=== PATIENT | male | born 2000 | race Caucasian/White ===

== ENCOUNTER 2020-01-07 18:51 | Emergency (ER) | payer BC, SELFPAY ==
[2020-01-07 18:51] VITALS: BP 128/87; PULSE 103; RESP 15; TEMP 36.9; O2SAT 99; BMI 19.8
[2020-01-07] MEDS: Acetaminophen 500 MG Tablet 1000 MG PO (19:34)
--- NOTE | 2020-01-07 19:50 | ED.DCSUM_ITS ---
History of Present Illness Chief Complaint: Dental Informant: Patient Onset: Yesterday Context: Gradual Onset Timing: Continuous Relieved by: NSAIDs Associated Symptoms: Jaw Swelling Narrative: Patient is a 19-year-old male presenting with 1 day of right lower jaw pain and swelling. He notes his pain is worse with chewing. This morning he noticed that he was having more swelling and went to an urgent care. He was evaluated and put on Augmentin. Instructed to take ibuprofen and follow-up with a dentist. Patient states he did not feel that he was evaluated thoroughly enough so he came to the emergency room. He is continued to have pain. He did take ibuprofen about 45 minutes prior to arrival. Patient notes 4 months ago he had his wisdom teeth removed and did have complications of dry socket and bone spurs on the right lower jaw. Patient sees [facility] dentist for his dental care. He denies any fever or chills. He denies any difficulty swallowing. Denies any other complaints at this time. Prior similar symptoms: No Past Medical History - Allergies and Home Meds Allergies/Adverse Reactions: Allergies No Known Allergies Allergy (Verified 05/06/17 14:07) Primary Care Physician: Care Physician,No Primary [Primary Care Provider] - Past Medical History: - - Marfanoid characteristics, no actual Marfan syndrome Surgical History: no surgical history Smoking Status: Never smoker Review of Systems General: Denies: Chills, Fever, Malaise, Sweats Eyes: Denies: Visual changes - bilaterally, Diplopia ENT: Reports: - - right lower dental pain/ jaw swelling . Denies: Bilateral ear pain, Rhinorrhea, Sore throat Cardiovascular: Denies: Chest pain, Palpitations Respiratory: Denies: Dyspnea, Cough, Dyspnea on exertion Gastrointestinal: Denies: Abdominal pain, Nausea, Vomiting, Diarrhea Skin: Denies: Rash, Wounds Neurological: Denies: Headache, Weakness, Numbness Physical Exam Vital Signs/Narrative: Vital Signs Temp Pulse Resp BP Pulse Ox 01/07/20 18:51 98.4 F 103 H 15 128/87 H 99 Inital Vital Signs reviewed: Yes General: Well nourished, Well developed Head: Normocephalic, Atraumatic ENT: Moist mucous membranes, No rhinorrhea, TM's clear Mouth/Throat: Normal inspection lips/gums, Normal oral mucosa, Focal gum swelling - Posterior and lateral to the right back mandibular molar, Tenderness on tooth percussion - Right lower posterior mandible, - - Sublingual mucosa is soft, tissue swelling but no obvious abscess or area of fluctuance amenable to drainage. Negative for: Dental trauma, Dental abscess, Dentral fracture, Focal dental decay, Trismus, Widespread dental decay Neck: Supple, No lymphadenopathy, Nontender, No JVD Cardiovascular: Regular rate, Regular rhythm, No murmurs Respiratory: No distress, CTA bilaterally, Chest nontender Abdomen: Soft, Nontender Skin: Normal color, No rash Neurological: Alert, Oriented x3, Cranial nerves II-XII grossly intact, Normal Strength, Normal Sensation Psychological: Normal affect Diagnostic/Tx/Re-eval - Medical Decision Making Regional and Local Dental Anesthesia: Marcaine, Right Inferior Alveolar Nerve Block Patient is evaluated for dental pain and swelling. He appears nontoxic no acute distress. He has no airway compromise. I do not suspect Ludwigs angina. He does not have an obvious abscess that is amenable to drainage at this time. Patient is given a dental block for pain control as well as Tylenol. He is already on Augmentin and is encouraged to keep it. He is heavily encouraged to call his dentist tomorrow morning for follow-up. Patient is counseled on signs and symptoms requiring return to the emergency room. Patient verbalizes agreement and understand this plan. Patient discharged home in stable and improved condition. ED Disposition - Plan for ED Patient: Disposition: Home or Assisted Living Diagnosis: Facial swelling, Dentalgia Instructions: Dental Abscess Prescriptions: Ibuprofen [Motrin] 600 mg PO Q6H PRN PRN #20 tab PRN Reason: Pain/Inflammation Prescription Printed Referrals: Care Physician,No Primary [Primary Care Provider] - Additional Instructions: Follow-up with your dentist. At this time I think you have an early dental abscess but is too soon to drain. Return the emergency room if you have significantly worsening swelling, unable to open your mouth or difficulty swallowing. Is very important that you follow-up with your dentist soon as possible. Call in the morning.
[2020-01-07] MEDS: Bupivacaine 0.5%/Epi 1.8 ML Syringe INFILT (20:03)
== END 2020-01-07 20:05 | disposition home or self-care (01) ==
PROVIDERS: Emergency Provider Emergency Medicine
DX: K08.89 Other specified disorders of teeth and supporting structures (principal); R22.0 Localized swelling, mass and lump, head
CPT/HCPCS: 64999; 99283

== ENCOUNTER 2023-04-09 16:09 | Emergency (ER) | payer MEDICAID, SELFPAY ==
[2023-04-09 16:10] VITALS: BP 117/64; PULSE 101; RESP 18; TEMP 36.8; O2SAT 99; BMI 23.9
--- NOTE | 2023-04-09 16:12 | EDS_ITS ---
HPI History of Present Illness Chief Complaint: Syncope [facility] Medical History (Updated 04/09/23 @ 19:[address] Heriberto Cotton, DO) Marfan syndrome POTS (postural orthostatic tachycardia syndrome) Home Medications ibuprofen 600 mg tablet 600 mg PO Q6H PRN PRN Pain/Inflammation #20 tabs 01/07/20 [Rx Last Taken Unknown] Allergy/AdvReac Type Severity Reaction Status Date / Time No Known Allergies Allergy Verified 05/06/17 14:07 Social History Smoking Status: Never smoker EXAM Physical Exam Const Vital Signs: 04/09/23 16:10 04/09/23 16:13 04/09/23 16:34 Temperature 98.3 F Temperature Source Temporal Pulse Rate 101 H Respiratory Rate 18 Respiratory Pattern Normal Blood Pressure 117/64 Blood Pressure Mean 81 Pulse Ox 99 Oxygen Delivery Method Room Air Room Air MDM MDM MDM Narrative Medical decision making narrative: HISTORY OF PRESENT ILLNESS: 22-year-old male here for near syncope. Patient states he was at work and began feeling warm, flushed, dizzy and nearly passed out. Denies any falls or head trauma. States he is able to lower himself to the ground under his own power. Patient denies any prolonged confusion afterwards. States has a history of POTS and Marfan syndrome. States he is followed with a [facility] maintenance shop technician for which she sees once a year to get reevaluation and repeat testing. He states he has not had chest pain. He does note some shortness of breath the last 2 days but denies any shortness of breath now. The patient denies recent surgery in the last 4 weeks or immobilization in the last 3 days, denies previous diagnosis of DVT or PE, hemoptysis, unilateral leg swelling or mal ignancy with treatment the last 6 months. No estrogen use noted.. He denies any bleeding diathesis such as hemoptysis, hematemesis, hematuria, melena, hematochezia. He denies any volume loss such as vomiting or diarrhea. Denies any recent illnesses, cough, fever. Denies any sick contacts. REVIEW OF SYSTEMS: Pertinent positives: lightheadedness near syncope Pertinent negatives: Focal weakness, chest pain, shortness of breath PHYSICAL EXAM: Nursing triage notes reviewed, Vital signs reviewed Constitutional: please see mdm HENT: MMM Eyes: Pupils equal round and reactive to light, Extraocular muscles intact Neck: No stridor, no JVD, full neck ROM Lungs: Clear to auscultation, No wheezing or rales. No increased work of breathing, no conversational dyspnea, no accessory muscle use, no nasal flaring. No respiratory distress noted Heart: Regular rate and rhythm, No murmurs, No rubs and No gallops, 2+ distal pulses (radial, femoral, posterior tibial) in all extremities Abdomen: Soft, there is no tenderness, rigidity, rebound or guarding, no obvious peritoneal signs, no palpable pulsatile abdominal masses, no auscultated abdominal bruit : No CVAT Extremities: No edema Neuro: Alert and oriented x3, neuro exam at baseline, cranial nerves II through XII are intact. No pain with extraocular muscle movement. There is negative test of skew. Normal speech. 5 of 5 strength in upper and lower extremities in flexion extension. Intact sensation to light touch in upper and lower extremity dermatomes. No truncal or extremity ataxia. No dysdiadochokinesia. Normal gait. 2+ reflexes. No meningeal signs. Negative Babinski. NIH of 0 Skin: No rash or lesions noted MEDICAL DECISION MAKING: Chief Complaint: syncope External records reviewed: No recent cardiac catheterizations, stress test or echocardiograms noted in the chart. No recent ED visits noted in the chart MDM Narrative: Patient was initially hemodynamically stable, afebrile, nontoxic-appearing satu rating well on room air no acute distress. I considered the following differential diagnosis: Arrhythmia, myocardial ischemia, anemia, electrolyte abnormality, pulmonary infection, aortic dissection, PE I considered pulmonary embolism as a potential diagnosis However the patient has a low risk Wells score and as such have a low suspicion for PE. He had no stigmata of VTE on exam he is not complaining of chest pain or shortness of breath. While the patient does have a history of Marfan syndrome he had no chest pain, pulse deficits or vital sign abnormalities I would suggest aortic dissection IV was established, patient was placed on the court monitor. I performed a broad lab and imaging work-up to further elucidate the etiology of the patient's complaints. Patient's initial EKG showed normal sinus rhythm, normal axis, normal intervals, no STEMI or ischemic changes. There is no signs of WPW, ARVD or Brugada syndrome. I treated the patient with 1 L of normal saline for fluid resuscitation. Labs were remarkable for no signs of systemic inflammation or anemia. There is no evidence of electrolyte abnormalities, significant anemia. Troponin was negative x2 (0% 90-day mortality with 2 negative high-sensitivity troponins). No clear life-limiting etiology could be ascertained. Patient's etiology is likely secondary to POTS syndrome and dehydration encouraged to push more p.o. fluids. Patient agreed with plan agreed to follow-up with his maintenance shop technician and primary care physician at the next available appointment. Factors affecting care: Marfan syndrome, POTS Social determinants of health: Never smoker History obtained from others: Coworkers, EMS Shared decision making: I will have a discussion with the patient and or visitors regarding risk/benefits of further testing or admission. They will be made aware of of the risk/benefits inherent in this decision they will be given the opportunity to voice understanding. Consults: None Lab Data Attestation: I reviewed the patient's lab results. Lab results narrative: EKG with normal sinus rhythm, normal axis, normal intervals, no ST or T wave changes to suggest ischemia. No evidence of WPW, Brugada, ARVD. CBC without leukocytosis, severe anemia, no thrombocytopenia. BMP without significant electrolyte abnormalities, no anion gap to suggest endorgan hypoperfusion, patient does have a mild acute kidney injury with a creatinine 1.55. There is no prior for comparison. Repeat BMP shows creatinine is downtrending patient is vomiting having diarrhea he is appropriate for outpatient management with his PCP Troponin is negative, no evidence of myocardial ischemia, delta troponin also negative Labs: Laboratory Results - last 24 hr 04/09/23 04/09/23 04/09/23 16:42 16:42 18:50 WBC 6.4 RBC 5.12 Hgb 15.4 Hct 45.6 MCV 89.1 MCH 30.1 MCHC 33.8 RDW Std Deviation 37.6 RDW Coeff of Giovany 11.7 Plt Count 352 MPV 9.3 Immature Gran % (Auto) 0.300 Neut % (Auto) 60.1 Lymph % (Auto) 29.7 [place] % (Auto) 7.2 Eos % (Auto) 2.2 Baso % (Auto) 0.5 Absolute Neuts (auto) 3.8 Absolute Lymphs (auto) 1.89 Nucleated RBC % 0 Sodium 141 142 Potassium 3.6 3.5 Chloride 105 111 H Carbon Dioxide 27.0 24.0 Anion Gap 9 7 BUN 19 H 20 H Creatinine 1.55 H 1.38 H Estim Creat Clear Calc 89.35 100.35 Est GFR (MDRD) Af Amer 72 82 Est GFR (MDRD) Non-Af 60 68 BUN/Creatinine Ratio 12.3 14.5 Glucose 92 92 Calcium 9.6 8.3 L Troponin I High Sens 3 04/09/23 18:50 WBC RBC Hgb Hct MCV MCH MCHC RDW Std Deviation RDW Coeff of Giovany Plt Count MPV Immature Gran % (Auto) Neut % (Auto) Lymph % (Auto) [place] % (Auto) Eos % (Auto) Baso % (Auto) Absolute Neuts (auto) Absolute Lymphs (auto) Nucleated RBC % Sodium Potassium Chloride Carbon Dioxide Anion Gap BUN Creatinine Estim Creat Clear Calc Est GFR (MDRD) Af Amer Est GFR (MDRD) Non-Af BUN/Creatinine Ratio Glucose Calcium Troponin I High Sens 4 Radiography Diagnostic Testing: Clinical Impression(s) from Imaging Studies Chest X-Ray 04/09/23 16:42 IMPRESSION: Normal x-ray examination of the chest. Electronically Signed: Hamlet Wiley MD at 17:06 EDT , Discharge Plan Triage Chief Complaint: Syncope ED Provider: Heriberto Cotton Dx/Rx/DC Orders Clinical Impression: Near syncope, POTS (postural orthostatic tachycardia syndrome) Instructions: ED Fainting, Vagal Reaction Prescriptions: No Action ibuprofen 600 MG tablet 600 mg PO Q6H PRN PRN (Reason: Pain/Inflammation) Qty: 20 0RF Stand Alone Forms: ED Work / School Excuse Primary Care Provider: Aide Garces [employer] Referrals: Care Physician,No Primary [Non-Staff] - Activity Restrictions/Additional Instructions: Thank you for trusting us with your care today! Please take Tylenol (2 pills, 650 mg), ibuprofen (2 pills, 400 mg) every 6 hours as needed for pain and fever control. Please increase your fluid intake. I recommend Pedialyte or body armor as they have a superior electrolyte sugar profile. Please return to the emergency department if your symptoms change or worsen. Please follow with your primary care physician for further outpatient evaluation and management. Disposition Disposition: Home, Self Care
--- NOTE | 2023-04-09 16:13 | EKG12_ITS ---
Test Reason : NEAR SYNCOPE Blood Pressure : / mmHG Vent. Rate : 090 BPM Atrial Rate : 090 BPM P-R Int : 142 ms QRS Dur : 092 ms QT Int : 334 ms P-R-T Axes : 072 076 045 degrees QTc Int : 408 ms Normal sinus rhythm Normal ECG Confirmed by CHRISTOFER SCHROEDER, HILARIA ([id number]), supervising editor trailer ANANTH TREVIÑO ([id number]) on 04/12/2023 11:34:49 AM Referred By: Confirmed By:HILARIA BEAULIEU MD
--- NOTE | 2023-04-09 16:42 | RAD_ITS ---
STUDY: X-RAY CHEST REASON FOR EXAM: Male, 22 years old. chest pain TECHNIQUE: Single AP portable view of the chest. COMPARISON: None. FINDINGS: The lungs are clear and expanded. There is no demonstrated pleural abnormality. Normal size heart. Normal mediastinum and juan. Normal visualized pulmonary arteries. Normal visualized aortic arch and descending thoracic aorta. Normal visualized thoracic spine. Normal visualized ribs, clavicles, and shoulders. There is no demonstrated abnormality of the visualized soft tissue structures of the upper abdomen. RAD/Chest 1 View (Portable) IMPRESSION: Normal x-ray examination of the chest. Electronically Signed: Hamlet Wiley MD at 17:06 EDT ,
[2023-04-09 16:48] LABS: Absolute Lymphocyte Count 1.89 X10^3/uL (0.83-4.51); Absolute Neutrophil Count 3.8 X10^3/uL (2.0-7.7); Basophil# 0.03 X10^3/uL; Basophil% 0.5 % (0-1); Eosinophil# 0.14 X10^3/uL; Eosinophils% 2.2 % (0-5); Hematocrit 45.6 % (40-54); Hemoglobin 15.4 g/dL (13.0-16.5); Lymphocyte # 1.89 X10^3/ul (0.83-4.51); Lymphocyte % 29.7 % (19-41); Mean Corp Hgb Conc 33.8 g/dL (32-36); Mean Corpuscular Hgb 30.1 pg (27.0-32.0); Mean Corpuscular Volume 89.1 fL (80-94); Mean Platelet Vol. 9.3 fl (6.2-12.0); Monocyte# 0.46 X10^3/uL; Monocyte% 7.2 % (0-10); NRBC Flagged by Analyzer 0 % (0-5); Neutrophil # 3.82 X10^3/uL (2.7-7.7); Neutrophil % 60.1 % (47-70); Platelet Count 352 K/mm3 (150-450); RBC Distribution Width CV 11.7 % (11.6-14.6); RBC Distribution Width SD 37.6 fl (35.1-43.9); Red Blood Count 5.12 M/mm3 (4.6-6.2); White Blood Count 6.4 K/mm3 (4.4-11.0)
[2023-04-09] MEDS: 0.9% Normal Saline 1,000 ML 1000 ML IV (16:53)
[2023-04-09 17:13] LABS: Anion Gap 9 (5-15); BUN 19 mg/dL (7-18); BUN/Creat Ratio 12.3 RATIO (10-20); Calcium,Total 9.6 mg/dL (8.5-10.1); Chloride 105 mmol/L (98-107); Creatinine, Serum 1.55 mg/dL (0.70-1.30); EST Glomerular Filtration Rate 60 mL/min (>60); Est Glom Filt Rate - Afr Amer 72 mL/min (>60); Estimated Creatinine Clearance 89.35 ml/min; Glucose 92 mg/dL (74-106); Potassium 3.6 mmol/L (3.5-5.1); Sodium Level 141 mmol/L (136-145); Troponin-I HS (w/2H Reflex) 3 pg/mL (3.0-78.0)
[2023-04-09] MEDS: 0.9% Normal Saline 1,000 ML 999 ML IV (17:52)
[2023-04-09 18:46] LABS: Reflex Troponin-HS? (from REC) Y
[2023-04-09 19:22] LABS: Anion Gap 7 (5-15); BUN 20 mg/dL (7-18); BUN/Creat Ratio 14.5 RATIO (10-20); Calcium,Total 8.3 mg/dL (8.5-10.1); Chloride 111 mmol/L (98-107); Creatinine, Serum 1.38 mg/dL (0.70-1.30); EST Glomerular Filtration Rate 68 mL/min (>60); Est Glom Filt Rate - Afr Amer 82 mL/min (>60); Estimated Creatinine Clearance 100.35 ml/min; Glucose 92 mg/dL (74-106); Potassium 3.5 mmol/L (3.5-5.1); Sodium Level 142 mmol/L (136-145)
[2023-04-09 19:28] LABS: Troponin-I HS 4 pg/mL (3.0-78.0)
[2023-04-09 19:45] VITALS: RESP 18
== END 2023-04-09 19:46 | disposition home or self-care (01) ==
PROVIDERS: Emergency Provider Emergency Medicine; PCP Internal Medicine; Visit Provider Emergency Medicine
DX: R55 Syncope and collapse (principal); G90.A Postural orthostatic tachycardia syndrome [POTS]
CPT/HCPCS: 71045; 80048; 84484; 85025; 93005; 96360; 96361; 99285; J7030; A4216

== ENCOUNTER 2024-12-26 16:31 | Emergency (ER) | payer BC, SELFPAY ==
[2024-12-26 16:33] VITALS: BP 146/101; PULSE 90; RESP 18; TEMP 37.2; O2SAT 98; BMI 24.5
--- NOTE | 2024-12-26 16:40 | US_ITS ---
PROCEDURE: TESTICULAR WITH ARTERIAL FLOW REASON FOR EXAM: Pain and lump for 2 days TECHNIQUE: Grayscale and color flow imaging of the scrotal contents with Doppler waveform spectral analysis. COMPARISON: No relevant prior FINDINGS: RIGHT testicle: 4.4 x 3.7 x 2.5 cm. Homogeneous echotexture. No intratesticular mass. Right epididymis: 0.9 x 1.5 x 0.7 cm. Hydrocele: Small. Varicocele: Present. LEFT testicle: 4.7 x 2.9 x 2.5 Homogeneous echotexture. No intratesticular mass. Left epididymis: 1.3 x 2.1 x 0.6 cm. Hydrocele: Small. Neck is Varicocele: Not present. Other findings: No hydrocele or large varicocele. US/Testicular with Arterial Flow IMPRESSION: No testicular masses. Bilateral small hydroceles. Small right varicocele. No evidence of torsion. Reading Location: NIA
[2024-12-26 17:48] LABS: Mucous, Urine 0 SEEN /hpf (<or=2+); Squamous Epithelial Cells - UA 0 SEEN /hpf (0-5)
--- NOTE | 2024-12-26 18:15 | EX.ED.GUMALE ---
HPI History of Present Illness Chief Complaint: Male Pain/Injury Informant: patient and spouse/S.O. Narrative Narrative: Presents concerning increasing lump left scrotum over last 2 days. States 2 days ago he did lift TV with his dad, no injuries no pain during the event. States he noted mild discomfort that progressed. States yesterday was small pea size and enlarged since then. No urinary symptoms. He is here with his fianc?e. Denies penile discharge. 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 Prior similar symptoms: No PFSH PFSH Medical History Marfan syndrome POTS (postural orthostatic tachycardia syndrome) Home Medications ?Medication ?Instructions ?Recorded ?Last Taken ?Type ibuprofen 600 mg tablet 600 mg PO Q6H PRN PRN 01/07/20 Unknown Rx Pain/Inflammation #20 tabs Allergy/AdvReac Type Severity Reaction Status Date / Time No Known Allergies Allergy Verified 12/26/24 16:33 Social History Smoking Status: Never smoker ROS ROS ED Constitutional Constitutional ED: Denies chills, fever(s) or sweats ENT ENT ED: Denies sore throat Cardiovascular Cardiovascular: Denies chest pain, leg edema, palpitations or racing heartbeat Respiratory/Chest Respiratory/Chest: Denies cough, dyspnea or dyspnea on exertion Gastrointestinal Gastrointestinal: Denies abdominal pain, diarrhea, nausea or vomiting Genitourinary Genitourinary ED: Reports other Details: Left scrotal pain. No penile discharge. ; Denies dysuria, hematuria or urinary frequency Musculoskeletal Musculoskeletal: Denies back pain, extremity pain or neck pain Integumentary Denies rash or wounds Neurologic Neurologic: Denies headache(s), paresthesias or weakness EXAM Physical Exam Const Vital Signs: 12/26/24 16:33 12/26/24 18:32 12/26/24 20:00 Temperature 98.9 F Temperature Source Oral Pulse Rate 90 84 71 Respiratory Rate 18 16 Blood Pressure 146/101 H 117/69 Blood Pressure Mean 116 85 Pulse Ox 98 100 Oxygen Delivery Method Room Air 12/26/24 22:00 12/26/24 22:21 Temperature 98 F Temperature Source Pulse Rate 83 83 Respiratory Rate 16 Blood Pressure 109/72 109/72 Blood Pressure Mean 84 84 Pulse Ox 96 96 Oxygen Delivery Method Positive well nourished and well developed General Appearance ED: well developed and NAD HEENT Reports moist mucous membranes normocephalic and atraumatic Eyes General Eye ED: Yes normal appearance of both eyes Neck full ROM Chest Wall Chest: Negative for tenderness Resp normal respiratory effort and normal air movement Effort and Inspection: symmetric chest movement; Negative for respiratory distress Cardio regular rate, regular rhythm and no murmurs Peripheral Pulses: pulses 2+ throughout GI normal to inspection, nondistended, normoactive bowel sounds and non-tender Palpation: Negative for guarding or rebound tenderness present Narrative: No hernia seen or palpated. There is left epididymal tenderness, there was bogginess palpated inferior aspect the left scrotum. No scrotal mass palpated. Extremity normal to inspection General Extremety ED: Negative for edema or tenderness General Extremity: Negative for edema Neuro oriented x3 and no sensory deficits noted Sensorium / Orientation: awake and alert Skin no rashes or lesions noted and no wounds MDM MDM MDM Narrative Medical decision making narrative: Interventions / MDM: Differential diagnosis: Epididymitis, varicocele, hydrocele Diagnosis considered but do not suspect: No clinical hernia, no clinical torsion My EKG interpretation: N/A Imaging independently reviewed and interpreted by myself: Scrotal ultrasound: Small hydroceles bilaterally, right variceal. External documents reviewed: N/A Test considered but not ordered:N/A ED course: Patient declines any medications. Ultrasound ordered. Urine sent for UA and STD screening. Urine for hematuria, GC chlamydia returned negative. Delay in ultrasound reads, resolved small bilateral hydroceles, right varicocele. Discussed clinical epididymitis, scrotal support NSAIDs. Discussed no intervention typically with hydroceles and varicoceles. Is reassured. He is given follow-up with urology. All questions were answered. Re-evaluation: stable Disposition discussed with patient/family/significant other: Case discussed with consulting clinician: N/A This note was generated with [employer] dictation software. It may contain incorrect words, spelling, and punctuation that were not noted in checking the note before signing. Lab Data Attestation: I reviewed the patient's lab results. Labs: Laboratory Results - last 24 hr 12/26/24 17:43 Urine Color Yellow Urine Clarity Clear Urine pH 6.5 Ur Specific [place] 1.015 Urine Protein Negative Urine Glucose (UA) Normal Urine Ketones Negative Urine Occult Blood 10 H Urine Nitrite Negative Urine Bilirubin Negative Urine Urobilinogen Normal Ur Leukocyte Esterase Negative Urine RBC 0-5 SEEN Urine WBC 0-5 SEEN Ur Squamous Epith Cells 0 SEEN Urine Bacteria RARE Urine Mucus 0 SEEN Radiography Diagnostic Testing: Clinical Impression(s) from Imaging Studies Testicular Ultrasound 12/26/24 16:40 IMPRESSION: No testicular masses. Bilateral small hydroceles. Small right varicocele. No evidence of torsion. Reading Location: NIA Discharge Plan Triage Chief Complaint: Male Pain/Injury ED Provider: Marko Avelar Dx/Rx/DC Orders Clinical Impression: Epididymitis, left, Bilateral hydrocele, Right varicocele Instructions: ED Epididymitis, ED Hydrocele, Type Not Specified, ED Varicocele Prescriptions: No Action ibuprofen 600 MG tablet 600 mg PO Q6H PRN PRN (Reason: Pain/Inflammation) Qty: 20 0RF Primary Care Provider: Care Physician,No Primary Referrals: Brad Smalls MD [Med Staff - Active Staff] - 1-2 Weeks Care Physician,No Primary [Primary Care Provider] - Activity Restrictions/Additional Instructions: Clinical left epididymitis. Urine negative for infection. Ultrasound small hydrocele bilaterally, right sided small varicocele. Russell Motrin as needed scrotal support as discussed. Follow-up with urology for reevaluation. Print Language: Peruvian Disposition Disposition: Home, Self Care Discharge Date/Time: 12/26/24 22:21
[2024-12-26 18:32] VITALS: PULSE 84; RESP 16; O2SAT 100
[2024-12-26 18:32] LABS: Color, Urine Yellow (Yellow); Glucose, Dipstick Normal (Normal); Ketone-Dipstick Negative (Negative); Leukocyte Esterase-Dipstick Negative /ul (Negative); Nitrite-Dipstick Negative (Negative); Occult Blood-Urine 10 /ul (Negative); Protein-Dipstick Negative (Negative); Specific Gravity, Urine 1.015 (1.002-1.030); Urine Bilirubin Dipstick Negative (Negative); Urine Clarity Clear (Clear); Urine Urobilinogen Normal (Normal); Urine pH 6.5 (5.0 - 8.0)
[2024-12-26 19:53] LABS: Bacteria RARE /hpf (None Seen); Red Blood Cells-Urine 0-5 SEEN /hpf (0-5); White Blood Cells 0-5 SEEN /hpf (0-5)
[2024-12-26 20:00] VITALS: BP 117/69; PULSE 71
[2024-12-26 22:00] VITALS: BP 109/72; PULSE 83; O2SAT 96
[2024-12-26 22:21] VITALS: BP 109/72; PULSE 83; RESP 16; TEMP 36.6; O2SAT 96
== END 2024-12-26 22:21 | disposition home or self-care (01) ==
PROVIDERS: Emergency Provider Emergency Medicine; Visit Provider Emergency Medicine
DX: N45.1 Epididymitis (principal); Q87.40 Marfan syndrome, unspecified; N43.3 Hydrocele, unspecified; I86.1 Scrotal varices
CPT/HCPCS: 76870; 81001; 87491; 87591; 93976; 99282

== ENCOUNTER 2024-12-31 19:17 | Emergency (ER) | payer BC, SELFPAY ==
[2024-12-31 19:18] VITALS: BP 127/86; PULSE 91; RESP 16; TEMP 36.5; O2SAT 100
[2024-12-31 20:21] VITALS: BMI 23.8
[2024-12-31 20:25] LABS: Red Blood Cells-Urine 0 SEEN /hpf (0-5); White Blood Cells 0 SEEN /hpf (0-5)
[2024-12-31 20:26] LABS: Mucous, Urine 0 SEEN /hpf (<or=2+); Squamous Epithelial Cells - UA 0 SEEN /hpf (0-5)
[2024-12-31 20:30] LABS: Color, Urine Yellow (Yellow); Glucose, Dipstick Normal (Normal); Ketone-Dipstick Negative (Negative); Leukocyte Esterase-Dipstick Negative /ul (Negative); Nitrite-Dipstick Negative (Negative); Occult Blood-Urine 10 /ul (Negative); Protein-Dipstick 15 mg/dl (Negative); Specific Gravity, Urine 1.015 (1.002-1.030); Urine Bilirubin Dipstick Negative (Negative); Urine Clarity Cloudy (Clear); Urine Urobilinogen 1 mg/dl (Normal)
[2024-12-31 20:30] LABS: Absolute Lymphocyte Count 1.95 X10^3/uL (0.83-4.51); Absolute Neutrophil Count 3.6 X10^3/uL (2.0-7.7); Basophil# 0.03 X10^3/uL; Basophil% 0.5 % (0-1); Eosinophil# 0.16 X10^3/uL; Eosinophils% 2.6 % (0-5); Hematocrit 40.4 % (40-54); Hemoglobin 13.9 g/dL (13.0-16.5); Lymphocyte # 1.95 X10^3/ul (0.83-4.51); Lymphocyte % 31.6 % (19-41); Mean Corp Hgb Conc 34.4 g/dL (32-36); Mean Corpuscular Hgb 29.9 pg (27.0-32.0); Mean Corpuscular Volume 86.9 fL (80-94); Mean Platelet Vol. 8.8 fl (6.2-12.0); Monocyte# 0.46 X10^3/uL; Monocyte% 7.5 % (0-10); NRBC Flagged by Analyzer 0 % (0-5); Neutrophil # 3.55 X10^3/uL (2.7-7.7); Neutrophil % 57.5 % (47-70); Platelet Count 324 K/mm3 (150-450); RBC Distribution Width CV 11.7 % (11.6-14.6); RBC Distribution Width SD 37.2 fl (35.1-43.9); Red Blood Count 4.65 M/mm3 (4.6-6.2); White Blood Count 6.2 K/mm3 (4.4-11.0)
[2024-12-31 20:54] LABS: ALB/GLOB Ratio 1.4 RATIO (0.9-2.4); AST(SGOT) 13 U/L (15-37); Alanine Aminotransfer ALT/SGPT 28 U/L (16-61); Albumin, Serum 4.1 g/dL (3.2-5.0); Alkaline Phosphatase 74 U/L (45-117); Anion Gap 9 (5-15); BUN 19 mg/dL (7-18); BUN/Creat Ratio 17.1 RATIO (10-20); Calcium,Total 9.1 mg/dL (8.5-10.1); Chloride 109 mmol/L (98-107); Creatinine, Serum 1.11 mg/dL (0.70-1.30); EST Glomerular Filtration Rate 86 mL/min (>60); Est Glom Filt Rate - Afr Amer 104 mL/min (>60); Estimated Creatinine Clearance 122.65 ml/min; Glucose 108 mg/dL (74-106); Potassium 3.5 mmol/L (3.5-5.1); Protein, Total 7.1 g/dL (6.4-8.2); Sodium Level 142 mmol/L (136-145)
[2024-12-31 21:04] LABS: Bacteria RARE /hpf (None Seen)
[2024-12-31 21:05] LABS: Amorphous Sediment 3+
--- NOTE | 2024-12-31 21:11 | EX.ED.DYSGE1 ---
HPI <AZALIA Pagan - Last Filed: 12/31/24 21:54> History of Present Illness Chief Complaint: Abd Pain Narrative Narrative: 24-year-old male presents with left scrotal pain over the last 5 to 6 days. Prior to it starting he lifted a heavy TV with his dad and desks at work so he was not sure if it was related to that. There was no direct trauma. He was seen here on 12/26/2024 and had an ultrasound showing small bilateral hydroceles, right varicocele. He went home and has been wearing scrotal support and using NSAIDs and Tylenol and the pain had decreased but returned yesterday and today seems worse. The testicular pain is radiating towards the inguinal area. He has not noticed any enlargement. He has no dysuria or penile discharge. He is sexually active with his fianc?e. No fever chills nausea or vomiting. PFSH <AZALIA Pagan - Last Filed: 12/31/24 21:54> [facility] Medical History Marfan syndrome POTS (postural orthostatic tachycardia syndrome) Home Medications ?Medication ?Instructions ?Recorded ?Last Taken ?Type ibuprofen 600 mg tablet 600 mg PO Q6H PRN PRN 01/07/20 Unknown Rx Pain/Inflammation #20 tabs sulfamethoxazole 800 1 tab PO BID 10 days #20 tabs 12/31/24 Unknown Rx mg-trimethoprim 160 mg tablet (Bactrim DS) Allergy/AdvReac Type Severity Reaction Status Date / Time No Known Allergies Allergy Verified 12/31/24 19:21 Family History no significant family his Social History Smoking Status: Never smoker ROS <AZALIA Pagan - Last Filed: 12/31/24 21:54> ROS ED ROS Narrative Constitutional: Negative for fever, chills, malaise. GI: Negative for abdominal pain, nausea, vomiting. : Negative for dysuria, hematuria or frequency. Skin: Negative for rash. EXAM <AZALIA Pagan - Last Filed: 12/31/24 21:54> Physical Exam Narrative Exam Narrative: CONST: Patient sitting in no acute distress. EYES: Normal inspection. NECK: Normal inspection. RESP: No respiratory distress, CTAB. CVS: Regular rate and rhythm, no murmur, no gallop. ABD: Soft and nontender, no guarding or rebound, nondistended, no hernias. : Normal external genitalia. Normal testicular lie, tender over left epididymis. No swelling or overlying skin changes. No penile discharge. Cremasteric reflex intact. Back: Normal inspection, no CVA tenderness. SKIN: Color normal, no rash, warm, dry, intact. EXTREMITIES: Normal appearance, no pedal edema. NEURO: Alert and answering questions appropriately. PSYCH: Normal affect. Const Vital Signs: 12/31/24 19:18 12/31/24 21:18 Temperature 97.7 F L Temperature Source Temporal Pulse Rate 91 70 Respiratory Rate 16 16 Blood Pressure 127/86 H 116/67 Blood Pressure Mean 99 83 Pulse Ox 100 99 Oxygen Delivery Method Room Air Room Air <Dr. Meghann Bennett DO - Last Filed: 01/03/25 08:38> Physical Exam Const Vital Signs: 12/31/24 19:18 12/31/24 21:18 Temperature 97.7 F L Temperature Source Temporal Pulse Rate 91 70 Respiratory Rate 16 16 Blood Pressure 127/86 H 116/67 Blood Pressure Mean 99 83 Pulse Ox 100 99 Oxygen Delivery Method Room Air Room Air MDM <AZALIA Pagan - Last Filed: 12/31/24 21:54> MDM MDM Narrative Medical decision making narrative: History gathered from: Patient, his fianc?e Differential: Epididymitis, hernia, varicocele, hydrocele, torsion Patient presents with atraumatic left scrotal pain. He was seen here in the last week and had an ultrasound showing small bilateral hydroceles and a right varicocele. He appears well and nontoxic and is afebrile and hemodynamically stable. He is tender over the left epididymis. His history is not consistent with torsion so I do not feel he needs a repeat ultrasound. Labs and urinalysis are negative. I reviewed his urine culture for gonorrhea/chlamydia which was negative so I will treat for potential infection with E. coli with Bactrim. First dose given in ED. He should continue scrotal support and NSAIDs and follow-up with his doctor. He was discharged in stable condition. External records reviewed: 12/26/2024 Urine chlamydia and gonorrhea testing negative. Lab Data Attestation: I reviewed the patient's lab results. Labs: Laboratory Results - last 24 hr 12/31/24 12/31/24 20:09 20:15 WBC 6.2 RBC 4.65 Hgb 13.9 Hct 40.4 MCV 86.9 MCH 29.9 MCHC 34.4 RDW Std Deviation 37.2 RDW Coeff of Giovany 11.7 Plt Count 324 MPV 8.8 Immature Gran % (Auto) 0.300 Neut % (Auto) 57.5 Lymph % (Auto) 31.6 [facility] % (Auto) 7.5 Eos % (Auto) 2.6 Baso % (Auto) 0.5 Absolute Neuts (auto) 3.6 Absolute Lymphs (auto) 1.95 Nucleated RBC % 0 Sodium 142 Potassium 3.5 Chloride 109 H Carbon Dioxide 25.0 Anion Gap 9 BUN 19 H Creatinine 1.11 Estim Creat Clear Calc 122.65 Est GFR (MDRD) Af Amer 104 Est GFR (MDRD) Non-Af 86 BUN/Creatinine Ratio 17.1 Glucose 108 H Calcium 9.1 Total Bilirubin 0.40 AST 13 L ALT 28 Alkaline Phosphatase 74 Total Protein 7.1 Albumin 4.1 Globulin 3.0 Albumin/Globulin Ratio 1.4 Urine Color Yellow Urine Clarity Cloudy Urine pH 7.0 Ur Specific [place] 1.015 Urine Protein 15 H Urine Glucose (UA) Normal Urine Ketones Negative Urine Occult Blood 10 H Urine Nitrite Negative Urine Bilirubin Negative Urine Urobilinogen 1 H Ur Leukocyte Esterase Negative Urine RBC 0 SEEN Urine WBC 0 SEEN Ur Squamous Epith Cells 0 SEEN Amorphous Sediment 3+ Urine Bacteria RARE Urine Mucus 0 SEEN <Dr. Meghann Bennett, DO - Last Filed: 01/03/25 08:38> [facility] Lab Data Labs: Laboratory Results - last 24 hr 12/31/24 12/31/24 20:09 20:15 WBC 6.2 RBC 4.65 Hgb 13.9 Hct 40.4 MCV 86.9 MCH 29.9 MCHC 34.4 RDW Std Deviation 37.2 RDW Coeff of Giov[place] 11.7 Plt Count 324 MPV 8.8 Immature Gran % (Auto) 0.300 Neut % (Auto) 57.5 Lymph % (Auto) 31.6 [facility] % (Auto) 7.5 Eos % (Auto) 2.6 Baso % (Auto) 0.5 Absolute Neuts (auto) 3.6 Absolute Lymphs (auto) 1.95 Nucleated RBC % 0 Sodium 142 Potassium 3.5 Chloride 109 H Carbon Dioxide 25.0 Anion Gap 9 BUN 19 H Creatinine 1.11 Estim Creat Clear Calc 122.65 Est GFR (MDRD) Af Amer 104 Est GFR (MDRD) Non-Af 86 BUN/Creatinine Ratio 17.1 Glucose 108 H Calcium 9.1 Total Bilirubin 0.40 AST 13 L ALT 28 Alkaline Phosphatase 74 Total Protein 7.1 Albumin 4.1 Globulin 3.0 Albumin/Globulin Ratio 1.4 Urine Color Yellow Urine Clarity Cloudy Urine pH 7.0 Ur Specific [place] 1.015 Urine Protein 15 H Urine Glucose (UA) Normal Urine Ketones Negative Urine Occult Blood 10 H Urine Nitrite Negative Urine Bilirubin Negative Urine Urobilinogen 1 H Ur Leukocyte Esterase Negative Urine RBC 0 SEEN Urine WBC 0 SEEN Ur Squamous Epith Cells 0 SEEN Amorphous Sediment 3+ Urine Bacteria RARE Urine Mucus 0 SEEN Treatment and Re-Evaluation :: I have personally performed a face to face assessment of the patient and have reviewed the WILLIAM Note. I performed a substantive portion of the visit including all aspects of the following. My [place] findings include: History is patient is a 24-year-old male presenting with continued left-sided testicular pain. Was seen and evaluated on 12/26 and at that time had urinalysis, GC chlamydia and testicular ultrasound. Was found to have bilateral small hydroceles, small right variceals. At that time was treated symptomatically and not to be infectious and likely more inflammatory. Patient is not having increased pain however he notes the swelling has improved. He overall is well-appearing. On PA exam he does have localized tenderness to the left epididymis. Lab work normal. I do not think repeat ultrasound is indicated at this time. Given the progression and negative ultrasound as well as report of decreased swelling lower suspicion for intermittent torsion. Patient will be treated empirically with Bactrim to cover for possible epididymitis likely from E. coli and not STI. Continue symptomatic treatment as well with high riding underwear, testicular support and anti-inflammatories. Encourage follow-up with urology. Other additions or changes: [None] Discharge Plan Triage Chief Complaint: Abd Pain ED Midlevel Provider: Deanna Cage ED Provider: Meghann Bennett Dx/Rx/DC Orders Clinical Impression: Epididymitis, left Instructions: ED Epididymitis Prescriptions: New sulfamethoxazole-trimethoprim [Bactrim DS] 800-160 mg tablet 1 tab PO BID 10 Days Qty: 20 0RF No Action ibuprofen 600 MG tablet 600 mg PO Q6H PRN PRN (Reason: Pain/Inflammation) Qty: 20 0RF Primary Care Provider: Care Physician,No Primary Referrals: Care Physician,No Primary [Primary Care Provider] - Activity Restrictions/Additional Instructions: Continue alternating Tylenol and ibuprofen every 3 hours as needed. Or you can take them both together at the same time every 6 hours. Continue scrotal support. I prescribed antibiotics to treat epididymitis as it can often be caused by a bacterial infection. Follow-up with your primary care doctor. Print Language: Polish Disposition Disposition: Home, Self Care Discharge Date/Time: 12/31/24 22:53
[2024-12-31 21:18] VITALS: BP 116/67; PULSE 70; RESP 16; O2SAT 99
[2024-12-31] MEDS: Ketorolac 15 MG/ML Vial IV (21:18)
[2024-12-31] MEDS: Smz/Tmp Ds Tablet 1 TABLET PO (21:51)
[2024-12-31 22:52] VITALS: BP 121/66; PULSE 77; RESP 16; TEMP 36.6; O2SAT 98
== END 2024-12-31 22:53 | disposition home or self-care (01) ==
PROVIDERS: Emergency Provider Emergency Medicine; Visit Provider Emergency Medicine
DX: N45.1 Epididymitis (principal)
CPT/HCPCS: 80053; 81001; 85025; 96374; 99284; A4216

== ENCOUNTER → 2025-01-18 | Outpatient (CLI) | payer BC, SELFPAY ==
--- NOTE | 2025-01-18 15:39 | RAD_ITS ---
PROCEDURE: Cervical spine radiographs, five views REASON FOR EXAM: Neck pain TECHNIQUE: 5 views of the cervical spine. COMPARISON: None. FINDINGS: Five views of the cervical spine were obtained. On the lateral projection, the cervical spine is imaged from the skull base through the C7-T1 interspace. Prevertebral soft tissues within normal limits. Minimal disc space narrowing at C6-7. No significant neural foraminal narrowing. The odontoid process appears intact. The odontoid process appears intact, with the tip not well evaluated. RAD/Cerv Spine 4 or 5 Views IMPRESSION: Minimal disc space narrowing at C6-7. No acute bony abnormality of the cervica l spine. No significant neural foraminal narrowing. If there is persistent pain or clinical concern, short-term follow-up MRI evalu ation may be considered. Reading Location: [facility]
--- NOTE | 2025-01-18 15:39 | RAD_ITS ---
PROCEDURE: SCOLIOSIS STUDY REASON FOR EXAM: BACK PAIN. MARFAN SYNDROME. TECHNIQUE: Standing AP view(s) of the thoracic and lumbar spine. COMPARISON: No relevant prior FINDINGS: Scoliotic curvature is are noted at T1 through T6, T6 through T11 and T11 through L4. No segmentation anomalies. Paraspinal contours are preserved. T1-T6 Mild levocurvature. 3 degrees. T6-T11 Dextrocurvature. 11 degrees. T11- L4 Levocurvature. 15 degrees. RAD/Scoliosis 1 view IMPRESSION: Scoliotic curvatures of the thoracic and lumbar spine as detailed above. Reading Location: [facility]
== END | disposition home or self-care (01) ==
LOC: MTRAD 15:38
PROVIDERS: PCP Family Medicine; Referring Provider Family Medicine; Visit Provider Family Medicine
DX: M54.2 Cervicalgia (principal)
CPT/HCPCS: 72050; 72081

== ENCOUNTER 2025-02-09 19:20 | Emergency (ER) | payer BC, SELFPAY ==
[2025-02-09 19:21] VITALS: BP 134/78; PULSE 89; RESP 16; TEMP 36.6; O2SAT 98
--- NOTE | 2025-02-09 20:09 | RAD_ITS ---
PROCEDURE: KNEE 4 OR MORE VIEWS REASON FOR EXAM: INJURY/PAIN TECHNIQUE: 4 view(s) of the right knee COMPARISON: None. FINDINGS: No fracture. No suspicious bone lesion. Normal alignment. No effusion. Soft tissues are unremarkable. RAD/Knee 4 or More Views IMPRESSION: NEGATIVE KNEE SERIES Reading Location: [id number]
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
[2025-02-09] MEDS: HYDROcodone Bitartrate/Apap 5/325 Tablet PO (23:20)
[2025-02-09] MEDS: Ondansetron ODT 4 MG Tablet PO (23:21)
[2025-02-09 23:33] VITALS: BP 130/60; PULSE 80; RESP 18; TEMP 36.7; O2SAT 98
== END 2025-02-09 23:33 | disposition home or self-care (01) ==
LOC: ED 23:22
PROVIDERS: Emergency Provider Emergency Medicine; PCP Family Medicine; Visit Provider Emergency Medicine
DX: M25.561 Pain in right knee (principal); Q87.40 Marfan syndrome, unspecified
CPT/HCPCS: 73564; 99284

== ENCOUNTER → 2025-02-14 | Outpatient (CLI) | payer BC, SELFPAY ==
--- NOTE | 2025-02-14 14:50 | VDLE_ITS ---
Reason For Study Reason For Study: Pain RIGHT LEFT GSV is normal. CFV is compressible, spontaneous, phasic, competent, CFV is compressible, spontaneous, phasic, competent and demonstrates normal augmentation. and demonstrates normal augmentation. FV is compressible, spontaneous, phasic, competent and demonstrates normal augmentation. POP V is compressible, spontaneous, phasic, competent and demonstrates normal augmentation. T/P Trunk is compressible. PTV is compressible. RT PerV is compressible. Procedure This is a venous duplex using B-mode, color flow and spectral Doppler. Exam performed in department. A preliminary report was called and/or faxed to AZALIA Dickson. VL/Venous Duplex US, Unilateral Interpretation Summary Deep veins of the right lower extremity are patent and compressible segmentally . There is no evidence of right lower extremity deep vein thrombosis. Valvular competence appears intact within the p roximal deep venous system on the right . The right great saphenous vein appears patent and compressible segmentally. The left common femoral vein is patent and compressible . Ordering Physician: Melany Lay Referring Physician: Melany Lay Performed By: Glory Marshall
== END | disposition home or self-care (01) ==
LOC: CVS 14:46
PROVIDERS: PCP Family Medicine; Referring Provider Physician Assistant; Visit Provider Physician Assistant
DX: M79.661 Pain in right lower leg (principal)
CPT/HCPCS: 93971